=== PATIENT | female | born 1965 | race Caucasian/White ===

== ENCOUNTER → 2016-12-16 | Outpatient (CLI) | payer BC ==
--- NOTE | 2016-12-16 14:42 | MAMMOGRAPHY REPORT ---
BILATERAL DIGITAL SCREENING MAMMOGRAM TOMOSYNTHESIS WITH CAD: 12/16/2016 CLINICAL HISTORY: Routine screening. TECHNIQUE: Breast tomosynthesis in addition to standard 2D mammography was performed. Current study was also evaluated with a Computer Aided Detection (CAD) system. COMPARISON: Comparison is made to exams dated: 12/11/2015 mammogram, 12/05/2013 mammogram, 12/10/2014 mammogram, 07/17/2013 mammogram, 12/01/2012 mammogram, and 11/29/2012 mammogram - [facility]. BREAST COMPOSITION: The tissue of both breasts is heterogeneously dense, which may obscure small ma sses. FINDINGS: No suspicious masses, calcifications, or areas of architectural distortion are noted in e ither breast. There has been no significant interval change compared to prior exams. A biopsy marke r clip is again noted in the right upper outer quadrant. Bilateral benign-appearing calcifications are not significantly changed. IMPRESSION: ACR BI-RADS CATEGORY 2: BENIGN There is no mammographic evidence of malignancy. A 1 year screening mammogram is recommended. The p atient will receive written notification of the results. Approximately 10% of breast cancers are not detected with mammography. A negative mammographic repor t should not delay biopsy if a clinically suggestive mass is present. Latisha Wilcox M.D. ah/:12/16/2016 07:46:59 Foam Tank Laminator: Vaishali DURÁN(R)(M), [facility] letter sent: Normal 1/2 BI-RADS Code: ACR BI-RADS Category 2: Benign
== END | disposition home or self-care (01) ==
LOC: C.MAMM 07:06
PROVIDERS: ATTEND Obstetrics & Gynecology
DX: Z12.31 Encounter for screening mammogram for malignant neoplasm of breast (principal)

== ENCOUNTER → 2017-03-23 | Outpatient (CLI) | payer BC ==
[~2017-03-23] MED LIST: FUROSEMIDE 40 MG/4 ML VIAL IV ONE
--- NOTE | 2017-03-23 12:28 | DIAGNOSTIC IMAGING REPORT ---
Renal scan RENAL SCAN DIURETIC (MAG 3) CLINICAL HISTORY: R10.9 Right flank painR31.29 [id number] Caliectasis flank pain. Hematuria. TECHNIQUE: Study is performed following the administration of 8.9 mCi technetium 99m MAG3. This is followed by the administration of 20 mg of furosemide. COMPARISON STUDY: None FINDINGS: Flow uptake is considered generally symmetric bilaterally. Washout curves are unremarkable. There is an appropriate response to Lasix bilaterally. There are no obstructive changes. Split differential renal function demonstrates the left to contribute 50% and the right 42%. IMPRESSION: 1. Mild asymmetry of renal function with the right contributing 42% and the left 58%. 2. Otherwise unremarkable study with unremarkable vascular flow, as well as washout.. 3. There are no obstructive characteristics Electronically signed by: David Rouse M.D. 03/23/2017 12:26 PM Dictated Date/Time: 03/23/2017 12:24 PM
== END | disposition home or self-care (01) ==
LOC: C.NUCL 09:48
PROVIDERS: ATTEND Urology
DX: N28.89 Other specified disorders of kidney and ureter (principal); R31.29 Other microscopic hematuria; R10.9 Unspecified abdominal pain

== ENCOUNTER → 2017-09-15 | Outpatient (CLI) | payer OTHER ==
[~2017-09-15] MED LIST changes: -FUROSEMIDE 40 MG/4 ML VIAL IV ONE; +OPTIRAY 300 IV PRN
--- NOTE | 2017-09-15 14:38 | DIAGNOSTIC IMAGING REPORT ---
IV PYELOGRAM CLINICAL HISTORY: Ureteropelvic junction obstruction. Right flank pain. COMPARISON STUDY: IV pyelogram dated 01/10/2016. Nuclear renal scan dated 03/23/2017. TECHNIQUE: An abdominal general car yard supervisor radiograph is performed. IVP pyelogram was then performed following the IV administration of 100 cc of Optiray 300, tomographic images are acquired in the corticomedullary and excretory phases of enhancement. Overhead views of the renal collecting system and bladder were obtained in multiple obliquities both pre and post void. FINDINGS: The abdominal general car yard supervisor radiograph shows no evidence of bowel obstruction. Moderate constipation is observed. Cholecystectomy clips are identified in the right upper quadrant. Phleboliths are seen in the pelvis. There is no radiographic evidence of nephrolithiasis. The bony structures appear intact. Following contrast administration there is symmetric renal cortical enhancement and contrast excretion. No hydronephrosis is seen. There are no filling defects identified within the renal pelvis system bilaterally. The right ureter is normal in appearance. The left ureter was not well opacified during the examination. Additional delayed imaging was performed without good opacification of the left ureter. The bladder is normal as imaged. No significant post void residual is identified. IMPRESSION: Normal IV pyelogram noting suboptimal opacification of the left ureter. Electronically signed by: Andry Harris M.D. 09/15/2017 2:35 PM Dictated Date/Time: 09/15/2017 2:24 PM
== END | disposition home or self-care (01) ==
LOC: C.RAD 12:24
PROVIDERS: ATTEND Urology
DX: N13.5 Crossing vessel and stricture of ureter without hydronephrosis (principal); N28.89 Other specified disorders of kidney and ureter

== ENCOUNTER → 2017-09-21 | Outpatient (CLI) | payer OTHER ==
--- NOTE | 2017-09-21 13:24 | DIAGNOSTIC IMAGING REPORT ---
Renal scan RENAL SCAN DIURETIC (MAG 3) CLINICAL HISTORY: UPJ obstruction. TECHNIQUE: Study is performed following the administration of 8.4 mCi technetium 99m MAG3. This is followed by the administration of 20 mg of furosemide. COMPARISON STUDY: Renal scan 03/23/2017. FINDINGS: Flow uptake is considered generally symmetric bilaterally. Washout curves are unremarkable. There is an appropriate response to Lasix bilaterally. There are no obstructive changes. Split differential renal function demonstrates the left to contribute 53 % and the right 47 %. IMPRESSION: 1. Improved symmetry of renal function with the left contributing 53 % and the right 47 %. 2. Otherwise unremarkable study with unremarkable vascular flow, as well as washout. 3. There are no obstructive characteristics . Electronically signed by: Trent Knox M.D. 09/21/2017 1:23 PM Dictated Date/Time: 09/21/2017 1:19 PM
== END | disposition home or self-care (01) ==
LOC: C.NUCL 10:08
PROVIDERS: ATTEND Urology
DX: N13.5 Crossing vessel and stricture of ureter without hydronephrosis (principal)

== ENCOUNTER → 2017-12-30 | Outpatient (CLI) | payer OTHER ==
--- NOTE | 2017-12-30 14:54 | MAMMOGRAPHY REPORT ---
BILATERAL DIGITAL SCREENING MAMMOGRAM TOMOSYNTHESIS WITH CAD: 12/30/2017 CLINICAL HISTORY: Routine screening. Patient has no complaints. TECHNIQUE: Breast tomosynthesis in addition to standard 2D mammography was performed. Current study was also evaluated with a Computer Aided Detection (CAD) system. COMPARISON: Comparison is made to exams dated: 12/16/2016 mammogram, 12/11/2015 mammogram, 12/10/2014 ma mmogram, 12/05/2013 mammogram, 12/07/2012 stereotactic biopsy, and 07/17/2013 mammogram - [facility]. BREAST COMPOSITION: The tissue of both breasts is heterogeneously dense, which may obscure small mas ses. FINDINGS: No suspicious masses, calcifications, or areas of architectural distortion are noted in ei ther breast. There has been no significant interval change compared to prior exams. A biopsy marker clip is again noted in the right upper outer quadrant. Bilateral benign-appearing calcifications are not significantly changed. IMPRESSION: ACR BI-RADS CATEGORY 2: BENIGN There is no mammographic evidence of malignancy. A 1 year screening mammogram is recommended. The pa tient will receive written notification of the results. Approximately 10% of breast cancers are not detected with mammography. A negative mammographic report should not delay biopsy if a clinically suggestive mass is present. Latisha Wilcox M.D. ah/:12/30/2017 07:45:11 Mechanical Pencils Assembler: Elieser Osborn M, [facility] letter sent: Normal 1/2 BI-RADS Code: ACR BI-RADS Category 2: Benign
== END | disposition home or self-care (01) ==
LOC: C.MAMM 07:14
PROVIDERS: ATTEND Obstetrics & Gynecology
DX: Z12.31 Encounter for screening mammogram for malignant neoplasm of breast (principal)